=== PATIENT | male | born 1980 | race Caucasian/White ===

== ENCOUNTER 2016-07-24 23:37 | Emergency (ER) | payer OTHER ==
[~2016-07-24] VITALS: Ht 180.3 cm; Wt 95.5 kg
[2016-07-24 23:51] VITALS: BP 137/92; PULSE 96; RESP 15; O2SAT 97
--- NOTE | 2016-07-25 00:24 | ED.REPORT ---
HPI-Extremity Problem Lower Date of Service July 25, 2016 ED Provider: Cedric Chapa MD A healthy 36 year old male presents to the ED with a left first toe injury onset just prior to arrival. The patient was walking up the stairs when he landed wrong on the tip of his toe, resulting in a "pop" followed by pain and swelling. He denies additional injury/trauma or other symptoms. Nursing Notes Stated Complaint: LEFT FOOT INJURY Chief Complaint: Extremity Trauma Nursing Notes Reviewed: Yes Allergies: Coded Allergies: No Known Allergies (Unverified , 07/24/16) General Time Seen by MD: 00:21 Chief Complaint Toe injury left 1 Hx Obtained From: Patient Arrived By: Walk-in Onset Occurred: Just prior to arrival Symptom Duration: Since onset Location: : Toe left 1 Quality: Painful Severity: Current: Moderate Severity: Maximum: Moderate Pertinent Negative: Relieved by nothing Immunizations: Unknown Recent Healthcare: No recent doctor visit Past Medical History Past Medical History None Past Surgical History None reported Smoking History Unknown if Ever Smoker Social History Other Social History: Lives with children Ambulatory Status Independent Review of Systems Constitutional: Denies: Fever Musculoskeletal: Reports: Extremity pain (Left first toe), Extremity swelling ( Left first toe) Complete sys rev & neg: except as marked. Respiratory: Denies: Non-productive cough, Shortness of breath GI: Denies: Diarrhea, Vomiting Physical Exam Initial Vital Signs Vital Signs (First) Date Time Temp Pulse Resp B/P Pulse Ox O2 Delivery O2 Flow Rate FiO2 07/24/16 23:51 36.4 96 15 137/92 97 Room Air Initial VS: Reviewed, Vital signs abnormal Head / Eyes: Atraumatic, Normocephalic ENT: Conjunctiva normal, No scleral icterus Neck: Supple, Full range of motion Respiratory: No respiratory distress Skin: Warm, Dry, No cyanosis Neurologic: Alert, Oriented, Nonfocal Psychiatric: Mood/affect normal, Behavior normal, Normal thought content Left Great Toe: Positive: Ecchymosis present (Over MTP joint), Swelling present... (Over MTP joint) General/Constitutional: Awake, Alert, No acute distress Interpretation & Diagnostics X-Ray Interpretation Xray Interpretation: Possible nondisplaced diagonal fracture of distal end of the first proximal phalanx of left foot Study Performed: 3 View X-Ray Ordered: Foot left Interpretation / Wet Read by: Wet read ED physician Procedures Splint Application - Fx Mgt Splint Application- Fx Mgt: Immobilized in cast shoe Time: 00:46 Procedure Performed by: ED physician Precise Anatomic Location: Left foot Post-Procedure / Complications: Cap refill normal, Post splint vascular nl, Post splint neuro nl, Condition improved, Tolerated procedure well, Patient stable Re-Eval/Medical Decision Med Decision/Clinical Course 36-year-old male with injury to the left great toe a x-ray suggestive of a nondisplaced fracture. Fitted with a cast shoe. Follow-up with primary doctor. Tylenol and/or ibuprofen as needed for pain. Re-Evaluation/Progress : Time of Eval: 00:46 Patient Status: Condition improved Re-Evaluation/Progress Note: Splint applied. Discussed with patient x-ray results, diagnosis, and plan for discharge. Follow-up and return to the ER instructions given. Patient agrees with plan for care and all questions were addressed. Counseled Regarding: Diagnosis, Need for follow-up, When/why to return to ED Discharge & Departure Impression: Primary Impression: Toe fracture, left Encounter type: initial encounter Toe: great toe Fracture type: closed Phalanx: proximal Fracture alignment: nondisplaced Qualified Code: S92.415A - Nondisplaced fracture of proximal phalanx of left great toe, initial encounter for closed fracture Disposition: Home Discharge Condition All VS Reviewed: Yes Condition: Improved Patient Instructions: Toe Fracture (ED), Splint Care (ED) Additional Instructions: Thank you for entrusting us with your care. Your x-ray indicated a possible fracture of your left large toe. Wear the cast shoe until you are seen in follow-up. Ice and elevation. Tylenol and/or ibuprofen as needed for pain. Call your primary care provider tomorrow for a follow-up appointment. Return to the ER with any new or worsening symptoms. Scribe Attestation Portions of this note were transcribed by Sangita Cross. I, Dr. Chapa, personally performed the history, physical exam, and medical decision-making; I reviewed and confirmed the accuracy of the information in the transcribed note. Signed by: Jessy Raza, 07/25/2016, 02:05 Cedric Chapa MD July 25, 2016 00:24 SANGITA CROSS July 25, 2016 00:31
[2016-07-25 01:06] VITALS: BP 132/84; PULSE 88; RESP 18; O2SAT 98
--- NOTE | 2016-07-25 08:43 | DRSVH ---
PROCEDURE: X-RAY LEFT FOOT COMPLETE, MINIMUM THREE VIEWS ([id number]) INDICATIONS: FOOT PAIN TECHNIQUE: 3 views of the foot were acquired. COMPARISON: None. FINDINGS: Bones: No displaced fractures or dislocations. No suspicious bony lesions. Soft tissues: There is soft tissue swelling of the great toe distally. IMPRESSION: 1. No displaced fracture or dislocation. If clinical concern persists, recommend a repeat study in 7-10 days. Dictated by: Desean Flynn M.D. on 07/25/2016 at 8:41 Approved by: Desean Flynn M.D. on 07/25/2016 at 8:42
== END 2016-07-25 01:08 | disposition home or self-care (01) ==
LOC: SED 23:37
DX: S92.415A Nondisplaced fracture of proximal phalanx of left great toe, initial encounter for closed fracture (principal); X50.1XXA Overexertion from prolonged static or awkward postures, initial encounter; Y93.01 Activity, walking, marching and hiking; Y92.89 Other specified places as the place of occurrence of the external cause; Y99.8 Other external cause status